=== PATIENT | female | born 1990 | race Caucasian/White ===

== ENCOUNTER → 2016-11-04 | Outpatient (CLI) | payer OTHER | LOC: FIMAGING 12:44 | PROVIDERS: ATTEND Orthopaedic Surgery Hand Surgery | DX: S69.91XA Unspecified injury of right wrist, hand and finger(s), initial encounter (principal); M25.441 Effusion, right hand ==

== ENCOUNTER → 2016-11-15 | Day surgery (SDC) | payer OTHER | END | disposition home or self-care (01) | LOC: FIMAGING 12:26 | PROVIDERS: ATTEND Radiology Diagnostic Radiology | PROC: 02HV33Z Insertion of Infusion Device into Superior Vena Cava, Percutaneous Approach (ICD-10-PCS; principal; 2016-11-15) | DX: M86.141 Other acute osteomyelitis, right hand (principal) | CPT/HCPCS: 36569; 77001; C1751 ==